=== PATIENT | male | born 1945 | race Caucasian/White ===

== ENCOUNTER 2019-05-03 14:34 | Observation (INO) ==
[2019-05-03] MEDS ORDERED: Naloxone 0.4 MG/ML INJ IVP PRN (16:22)
[2019-05-03] MEDS ORDERED: Ondansetron 4 MG/2 ML VIAL IVP PRN (16:22)
[2019-05-03] MEDS ORDERED: Nitroglycerin 0.4 MG TAB.SUBL SL PRN ×2 (16:54→17:54)
[2019-05-03] MEDS ORDERED: *HR* Heparin 5,000 UNIT/ML VIAL IVP ONE (16:54)
[2019-05-03] MEDS ORDERED: *HR* Heparin 5,000 UNIT/ML VIAL IVP PRN ×3 (16:54→17:59)
[2019-05-03] MEDS ORDERED: Dextrose Gel 15 GM/37.5 ML TUBE PO PRN ×2 (16:56)
[2019-05-03] MEDS ORDERED: D5% in Water 1,000 ML IVC PRN (16:56)
[2019-05-03] MEDS ORDERED: *HR* Dextrose 50 % in Water (Syg) 50 ML SYRINGE IVP PRN (16:56)
[2019-05-03] MEDS ORDERED: Heparin 25,000 UNIT/250 ML D5W 25,000 UNIT/250 ML IV.SOLN IVC SCH ×2 (17:00→18:00)
[2019-05-03] MEDS: Metoprolol XL (24 HR) Succ 25 MG TAB.ER.24H PO SCH (17:06)
[2019-05-03 17:21] LABS: Basophils # 0.1 K/mcL (0.0-0.2); Basophils % 0.7 %; Eosinophils # 0.1 K/mcL (0.0-0.6); Eosinophils % 1.1 %; Hematocrit 35.9 % (37.5-50.1); Hemoglobin 11.3 g/dL (12.9-16.9); Immature Granulocytes % 1.1 % (0-4); Lymphocytes % 27.1 %; Mean Corpuscular HGB Conc 31.5 g/dL (31.6-35.5); Mean Corpuscular Hemoglobin 26.6 pg (28.0-33.3); Mean Corpuscular Volume 84.5 fL (83.0-100.0); Monocytes # 0.6 K/mcL (0.0-1.3); Monocytes % 7.7 %; Neutrophils # 4.5 K/mcL (1.6-8.9); Platelet Count 198 K/mcL (140-400); Red Blood Count 4.25 M/mcL (4.19-5.50); Red Cell Distribution Width 14.8 % (11.5-14.5); Segmented Neutrophils % 62.3 %; White Blood Count 7.3 K/mcL (4.3-11.1)
[2019-05-03 17:26] LABS: Heparin anti-factor XA UFH < 0.04 IU/mL (0.30-0.70); Prothrombin Time 34.4 Seconds (9.4-12.1)
[2019-05-03 17:29] LABS: Activated Partial Thrombo Time 41.4 Seconds (26.0-36.0)
[2019-05-03 17:49] LABS: Alanine Aminotransferase 15 Units/L (7-52); Albumin 3.8 g/dL (3.5-5.7); Albumin/Globulin Ratio 1.4 (1.1-2.2); Alkaline Phosphatase 68 Units/L (34-104); Aspartate Amino Transferase 12 Units/L (13-39); BUN/Creatinine Ratio 22 (6-26); Bilirubin,Total 0.3 mg/dL (0.3-1.0); Blood Urea Nitrogen 16 mg/dL (8-23); Calcium 8.7 mg/dL (8.6-10.3); Carbon Dioxide 23 mEq/L (23-29); Chloride 107 mEq/L (98-107); Chol/HDL Ratio 4.6 (0-4.9); Cholesterol 101 mg/dL (< 200); Globulin 2.7 g/dL (2.4-3.5); Glucose 87 mg/dL (70-105); HDL Cholesterol 22 mg/dL (40-59); LDL Cholesterol,Calculated 54 mg/dL (0-99); Magnesium 1.3 mg/dL (1.6-2.6); Osmolality,Calculated 289 (280-300); Phosphorous 3.2 mg/dL (2.7-4.5); Potassium 4.1 mEq/L (3.5-5.1); Sodium 139 mEq/L (136-145); Total Protein 6.5 g/dL (6.4-8.9); Triglycerides 126 mg/dL (< 150); eGFR For African Americans > 60 (> 60); eGFR For Non-African Americans > 60 (> 60)
[2019-05-03] MEDS ORDERED: Magnesium Oxide 400 MG TABLET PO ONE (17:53)
[2019-05-03] MEDS ORDERED: *HR* HYDROcodone/Acet 5/325 mg TABLET PO PRN (17:54)
[2019-05-03] MEDS: QUEtiapine Fumarate 100 MG TABLET PO SCH (20:43)
[2019-05-04] MEDS: *HR* Heparin 5,000 UNIT/ML VIAL IVP PRN ×2 (03:55→10:35)
[2019-05-04] MEDS: Furosemide 20 MG/2 ML VIAL IVP SCH ×2 (08:13→17:05)
[2019-05-04] MEDS: Metoprolol XL (24 HR) Succ 25 MG TAB.ER.24H PO SCH (08:13)
[2019-05-04] MEDS: Aspirin Enteric Coated 81 MG Tablet PO SCH (08:13)
[2019-05-04] MEDS: Isosorbide MONOnitrate (24 HR) 30 MG TAB.ER.24H PO SCH (08:13)
[2019-05-04] MEDS: PARoxetine 20 MG TABLET PO SCH (08:13)
[2019-05-04] MEDS: Insulin LISPRO 300 UNITS/3 ML VIAL SQ SCH ×3 (08:13→17:05)
[2019-05-04] MEDS: Carbidopa/Levodopa 25/100 TABLET PO SCH ×2 (08:18→12:08)
[2019-05-04 08:19] LABS: Hematocrit 34.7 % (37.5-50.1); Hemoglobin 11.6 g/dL (12.9-16.9)
[2019-05-04] MEDS ORDERED: *HR* HYDROcodone/Acet 5/325 mg TABLET PO PRN (12:39)
[2019-05-04 13:42] LABS: INR 1.8
[2019-05-04] MEDS: *HR* Amiodarone 200 MG TABLET PO SCH (15:12)
[2019-05-04] MEDS ORDERED: Perflutren Lipid Microsphere 1.3 ML in 0.9 % Sodium Chloride 8.7 ML IVP ONE (15:37)
[2019-05-04] MEDS ORDERED: *HR* Warfarin 10 MG TABLET PO ONE (18:00)
[2019-05-04] MEDS ORDERED: Warfarin perPT PO PRN (18:00)
[2019-05-04] MEDS: QUEtiapine Fumarate 100 MG TABLET PO SCH (22:08)
[2019-05-04] MEDS: lamoTRIgine 100 MG TABLET PO SCH (22:09)
[2019-05-05 05:09] LABS: Basophils % 0.3 %; Eosinophils # 0.1 K/mcL (0.0-0.6); Eosinophils % 1.6 %; Hematocrit 35.3 % (37.5-50.1); Hemoglobin 11.2 g/dL (12.9-16.9); Lymphocytes # 1.6 K/mcL (0.6-4.6); Lymphocytes % 27.2 %; Mean Corpuscular HGB Conc 31.7 g/dL (31.6-35.5); Mean Corpuscular Hemoglobin 27.3 pg (28.0-33.3); Mean Corpuscular Volume 85.9 fL (83.0-100.0); Monocytes # 0.6 K/mcL (0.0-1.3); Monocytes % 9.5 %; Neutrophils # 3.5 K/mcL (1.6-8.9); Platelet Count 189 K/mcL (140-400); Red Blood Count 4.11 M/mcL (4.19-5.50); Red Cell Distribution Width 14.7 % (11.5-14.5); Segmented Neutrophils % 60.4 %; White Blood Count 5.8 K/mcL (4.3-11.1)
[2019-05-05 05:17] LABS: INR 1.6; Prothrombin Time 18.2 Seconds (9.4-12.1)
[2019-05-05 05:31] LABS: BUN/Creatinine Ratio 23 (6-26); Blood Urea Nitrogen 19 mg/dL (8-23); Calcium 8.6 mg/dL (8.6-10.3); Carbon Dioxide 26 mEq/L (23-29); Chloride 104 mEq/L (98-107); Glucose 176 mg/dL (70-105); Magnesium 1.4 mg/dL (1.6-2.6); Osmolality,Calculated 295 (280-300); Phosphorous 3.6 mg/dL (2.7-4.5); Potassium 3.6 mEq/L (3.5-5.1); Sodium 139 mEq/L (136-145); eGFR For African Americans > 60 (> 60); eGFR For Non-African Americans > 60 (> 60)
[2019-05-05] MEDS ORDERED: *HR* Heparin 5,000 UNIT/ML VIAL IVP ONE (07:43)
[2019-05-05] MEDS ORDERED: *HR* Heparin 5,000 UNIT/ML VIAL IVP PRN ×2 (07:43)
[2019-05-05] MEDS: Insulin LISPRO 300 UNITS/3 ML VIAL SQ SCH ×3 (08:29→17:40)
[2019-05-05 08:34] LABS: Mean Corpuscular HGB Conc 31.6 g/dL (31.6-35.5); Mean Corpuscular Volume 85.6 fL (83.0-100.0); Mean Platelet Volume 10.7 fL (9.4-12.4); Platelet Count 187 K/mcL (140-400); Red Blood Count 4.44 M/mcL (4.19-5.50); Red Cell Distribution Width 14.7 % (11.5-14.5); White Blood Count 6.6 K/mcL (4.3-11.1)
[2019-05-05 08:43] LABS: Heparin anti-factor XA UFH < 0.04 IU/mL (0.30-0.70)
[2019-05-05 08:44] LABS: INR 1.5; Prothrombin Time 17.1 Seconds (9.4-12.1)
[2019-05-05] MEDS: Heparin 25,000 UNIT/250 ML D5W 25,000 UNIT/250 ML IV.SOLN IVC SCH (10:39)
[2019-05-05] MEDS: Aspirin Enteric Coated 81 MG Tablet PO SCH (10:39)
[2019-05-05] MEDS: PARoxetine 20 MG TABLET PO SCH (10:40)
[2019-05-05] MEDS: *HR* Amiodarone 200 MG TABLET PO SCH (10:40)
[2019-05-05] MEDS: Metoprolol XL (24 HR) Succ 25 MG TAB.ER.24H PO SCH (10:40)
[2019-05-05] MEDS: Isosorbide MONOnitrate (24 HR) 30 MG TAB.ER.24H PO SCH (10:40)
[2019-05-05] MEDS: Furosemide 20 MG/2 ML VIAL IVP SCH ×2 (10:40→18:13)
[2019-05-05] MEDS: Carbidopa/Levodopa 25/100 TABLET PO SCH ×3 (11:49→18:13)
[2019-05-05] MEDS ORDERED: *HR* Warfarin 7.5 MG TABLET PO ONE (18:00)
[2019-05-05] MEDS: lamoTRIgine 100 MG TABLET PO SCH (20:13)
[2019-05-05] MEDS: QUEtiapine Fumarate 100 MG TABLET PO SCH (20:13)
[2019-05-05] MEDS: Insulin DETEMIR 100 UNIT/ML X5UNITS SQ SCH (20:13)
[2019-05-06 00:48] LABS: Basophils % 0.6 %; Eosinophils # 0.1 K/mcL (0.0-0.6); Eosinophils % 1.9 %; Hematocrit 37.8 % (37.5-50.1); Immature Granulocytes % 0.9 % (0-4); Lymphocytes # 1.4 K/mcL (0.6-4.6); Lymphocytes % 26.9 %; Mean Corpuscular HGB Conc 31.7 g/dL (31.6-35.5); Mean Corpuscular Hemoglobin 27.2 pg (28.0-33.3); Mean Corpuscular Volume 85.7 fL (83.0-100.0); Mean Platelet Volume 10.8 fL (9.4-12.4); Monocytes # 0.6 K/mcL (0.0-1.3); Monocytes % 11.5 %; Neutrophils # 3.1 K/mcL (1.6-8.9); Platelet Count 191 K/mcL (140-400); Red Blood Count 4.41 M/mcL (4.19-5.50); Red Cell Distribution Width 14.7 % (11.5-14.5); Segmented Neutrophils % 58.2 %; White Blood Count 5.3 K/mcL (4.3-11.1)
[2019-05-06 00:49] LABS: INR 1.7; Prothrombin Time 19.1 Seconds (9.4-12.1)
[2019-05-06 01:05] LABS: BUN/Creatinine Ratio 29 (6-26); Blood Urea Nitrogen 25 mg/dL (8-23); Calcium 8.7 mg/dL (8.6-10.3); Carbon Dioxide 22 mEq/L (23-29); Chloride 103 mEq/L (98-107); Glucose 215 mg/dL (70-105); Magnesium 1.8 mg/dL (1.6-2.6); Osmolality,Calculated 293 (280-300); Phosphorous 3.4 mg/dL (2.7-4.5); Sodium 136 mEq/L (136-145); eGFR For African Americans > 60 (> 60); eGFR For Non-African Americans > 60 (> 60)
[2019-05-06] MEDS: Heparin 25,000 UNIT/250 ML D5W 25,000 UNIT/250 ML IV.SOLN IVC SCH (05:46)
[2019-05-06] MEDS: Furosemide 20 MG/2 ML VIAL IVP SCH (08:32)
[2019-05-06] MEDS: PARoxetine 20 MG TABLET PO SCH (08:32)
[2019-05-06] MEDS: Aspirin Enteric Coated 81 MG Tablet PO SCH (08:32)
[2019-05-06] MEDS: Isosorbide MONOnitrate (24 HR) 30 MG TAB.ER.24H PO SCH (08:32)
[2019-05-06] MEDS: Insulin LISPRO 300 UNITS/3 ML VIAL SQ SCH ×4 (08:33→16:55)
[2019-05-06] MEDS: Metoprolol XL (24 HR) Succ 25 MG TAB.ER.24H PO SCH (08:33)
[2019-05-06] MEDS: Insulin DETEMIR 100 UNIT/ML X5UNITS SQ SCH ×2 (08:35→21:17)
[2019-05-06] MEDS: Carbidopa/Levodopa 25/100 TABLET PO SCH ×3 (08:51→16:56)
[2019-05-06] MEDS ORDERED: Insulin DETEMIR 100 UNIT/ML X5UNITS SQ SCH (09:00)
[2019-05-06] MEDS ORDERED: Insulin LISPRO 300 UNITS/3 ML VIAL SQ SCH (12:00)
[2019-05-06] MEDS ORDERED: *HR* Warfarin 7.5 MG TABLET PO ONE (18:00)
[2019-05-06] MEDS: QUEtiapine Fumarate 100 MG TABLET PO SCH (21:16)
[2019-05-06] MEDS: lamoTRIgine 100 MG TABLET PO SCH (21:17)
[2019-05-07 01:09] LABS: INR 2.3; Prothrombin Time 25.7 Seconds (9.4-12.1)
[2019-05-07] MEDS: Heparin 25,000 UNIT/250 ML D5W 25,000 UNIT/250 ML IV.SOLN IVC SCH (01:18)
[2019-05-07 01:19] LABS: BUN/Creatinine Ratio 29 (6-26); Blood Urea Nitrogen 31 mg/dL (8-23); Calcium 8.2 mg/dL (8.6-10.3); Carbon Dioxide 26 mEq/L (23-29); Chloride 103 mEq/L (98-107); Glucose 172 mg/dL (70-105); Magnesium 1.8 mg/dL (1.6-2.6); Osmolality,Calculated 295 (280-300); Phosphorous 3.4 mg/dL (2.7-4.5); Sodium 137 mEq/L (136-145); eGFR For African Americans > 60 (> 60); eGFR For Non-African Americans > 60 (> 60)
[2019-05-07] MEDS: PARoxetine 20 MG TABLET PO SCH (08:03)
[2019-05-07] MEDS: Metoprolol XL (24 HR) Succ 25 MG TAB.ER.24H PO SCH (08:03)
[2019-05-07] MEDS: Isosorbide MONOnitrate (24 HR) 30 MG TAB.ER.24H PO SCH (08:03)
[2019-05-07] MEDS: Aspirin Enteric Coated 81 MG Tablet PO SCH (08:03)
[2019-05-07] MEDS: Insulin DETEMIR 100 UNIT/ML X5UNITS SQ SCH ×2 (08:05→21:40)
[2019-05-07] MEDS: Insulin LISPRO 300 UNITS/3 ML VIAL SQ SCH ×6 (08:06→16:10)
[2019-05-07] MEDS: Carbidopa/Levodopa 25/100 TABLET PO SCH ×3 (08:10→16:10)
[2019-05-07] MEDS ORDERED: *HR* Warfarin 5 MG TABLET PO ONE (18:00)
[2019-05-07] MEDS: lamoTRIgine 100 MG TABLET PO SCH (21:39)
[2019-05-07] MEDS: QUEtiapine Fumarate 100 MG TABLET PO SCH (21:39)
[2019-05-08 01:09] LABS: INR 2.4; Prothrombin Time 27.8 Seconds (9.4-12.1)
[2019-05-08] MEDS: Metoprolol XL (24 HR) Succ 25 MG TAB.ER.24H PO SCH (08:48)
[2019-05-08] MEDS: Aspirin Enteric Coated 81 MG Tablet PO SCH (08:48)
[2019-05-08] MEDS: PARoxetine 20 MG TABLET PO SCH (08:48)
[2019-05-08] MEDS: Isosorbide MONOnitrate (24 HR) 30 MG TAB.ER.24H PO SCH (08:48)
[2019-05-08] MEDS: Insulin LISPRO 300 UNITS/3 ML VIAL SQ SCH ×2 (08:49)
[2019-05-08] MEDS: Carbidopa/Levodopa 25/100 TABLET PO SCH (08:56)
[2019-05-08] MEDS: Insulin DETEMIR 100 UNIT/ML X5UNITS SQ SCH (08:56)
[2019-05-08 15:25] VITALS: BP 141/82
[2019-05-08] MEDS ORDERED: *HR* Warfarin 5 MG TABLET PO ONE (18:00)
== END 2019-05-08 11:45 | disposition home health service (06) ==
LOC: 2NENU → SUATTDRO 15:48
PROVIDERS: ADMIT Pharmacist; ATTEND Internal Medicine